=== PATIENT | male | born 1935 | race Caucasian/White ===

== ENCOUNTER 2018-07-27 08:21 | Day surgery (SDC) | payer OTHER ==
[~2018-07-27 08:21] MED LIST: DILTIAZEM 24HR120 MG PO; ENALAPRIL MALEA20 MG PO; TAMS0.4C PO
[2018-07-27] MEDS ORDERED: ULTRACET PO (10:34)
== END 2018-07-27 11:45 | disposition home or self-care (01) ==
LOC: CIR.AMB 08:21
DX: C83.37 Diffuse large B-cell lymphoma, spleen (principal)
CPT/HCPCS: 36561; C1751

== ENCOUNTER 2022-01-14 06:50 | Day surgery (SDC) | payer OTHER ==
[~2022-01-14 06:50] MED LIST changes: +NAMENDA10 MG PO; +TRAZODONE HCL50 MG PO; +ULTRACET PO
[2022-01-14] MEDS ORDERED: ULTRACET PO (10:02)
== END 2022-01-14 12:30 | disposition home or self-care (01) ==
LOC: CIR.AMB 06:50
PROVIDERS: ATTEND Surgery
DX: C83.37 Diffuse large B-cell lymphoma, spleen (principal); Z92.21 Personal history of antineoplastic chemotherapy